=== PATIENT | male | born 1995 | race African-American/Black ===

== ENCOUNTER 2020-07-18 00:32 | Emergency (ER) | payer SELFPAY ==
[~2020-07-18] VITALS: Ht 177.8 cm; Wt 75.0 kg
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
[2020-07-18] MEDS ORDERED: ACETAMINOPHEN 325 MG TABLET. PO ONE (01:30)
[2020-07-18 01:38] LABS: BASO # 0.1 x10^3/uL (0.0-0.2); BASO % 0 % (0-3); EOS % 0 % (0-3); HEMATOCRIT 48.2 % (39.0-53.0); HEMOGLOBIN 16.3 g/dL (13.0-17.5); LYMPH # 0.7 x10^3/uL (1.0-4.8); LYMPH % 3 % (24-48); MEAN CORPUSCULAR HEMOGLOBIN 30 pg (25-35); MEAN CORPUSCULAR HGB CONC 34 g/dL (31-37); MEAN CORPUSCULAR VOLUME 89 fL (79-100); MONO % 4 % (0-9); NEUT # 20.7 x10^3/uL (1.8-7.7); NEUT % 92 % (31-73); PLATELET COUNT 237 x10^3/uL (140-400); RED BLOOD COUNT 5.42 x10^6/uL (4.30-5.70); RED CELL DISTRIBUTION WIDTH 14.4 % (11.5-14.5); WHITE BLOOD COUNT 22.4 x10^3/uL (4.0-11.0)
[2020-07-18 01:53] LABS: CALCIUM 9.5 mg/dL (8.5-10.1); CREATININE 1.5 mg/dL (0.7-1.3); GFR 70.8; POTASSIUM 3.4 mmol/L (3.5-5.1)
[2020-07-18 01:58] LABS: ALBUMIN 4.1 g/dL (3.4-5.0); ALBUMIN/GLOBULIN RATIO 1.3 (1.0-1.7); TOTAL BILIRUBIN 0.4 mg/dL (0.2-1.0); TOTAL PROTEIN 7.3 g/dL (6.4-8.2)
[2020-07-18] MEDS ORDERED: IV NORMAL SALINE 1000ML BAG 1,000 ML IV ONE (02:00)
--- NOTE | 2020-07-18 02:47 | RAD ---
INDICATION: Reason: pain right distal tib fib / Spl. Instructions: / History: COMPARISON: None. IMPRESSION: Right lower le views obtained. No acute fracture or dislocation. Electronically signed by: Rod Herron MD (07/18/2020 2:44 AM) [id number]
[2020-07-18 03:07] VITALS: BP 130/76
[2020-07-18 04:49] LABS: AMPHETAMINE/METHAMPHETAMINE NEG (NEG); BARBITURATES NEG (NEG); BENZODIAZEPINES NEG (NEG); CANNABINOIDS POS (NEG); COCAINE NEG (NEG); METHADONE NEG (NEG); OPIATES NEG (NEG); PHENCYCLIDINE NEG (NEG)
[2020-07-18 04:57] LABS: % BANDS 11 % (0-9); % LYMPHS 2 % (24-48); % MONOS 2 % (0-10); % SEGS 85 % (35-66); PLT ESTIMATE ADEQUATE (ADEQUATE)
== END 2020-07-18 05:58 | disposition home or self-care (01) ==
LOC: ER 00:32
DX: S80.811A Abrasion, right lower leg, initial encounter (principal); R41.82 Altered mental status, unspecified; X58.XXXA Exposure to other specified factors, initial encounter; Y93.67 Activity, basketball; Y92.89 Other specified places as the place of occurrence of the external cause; Y99.8 Other external cause status
CPT/HCPCS: 36415; 73590; 80053; 80307; 85007; 85025; 96360; 99285; J7030